=== PATIENT | female | born 1985 | race American Indian/Alaskan Native ===

== ENCOUNTER 2016-06-17 11:49 | Outpatient (CLI) | payer MEDICAID ==
[2016-06-17 12:24] VITALS: BP 119/67
[2016-06-17] MEDS ORDERED: LACTATED RINGERS 500 ML IV ONE (13:28)
== END 2016-06-17 14:53 | disposition home or self-care (01) ==
LOC: TRG 11:49
PROVIDERS: ATTEND Obstetrics & Gynecology
DX: O77.9 Labor and delivery complicated by fetal stress, unspecified (principal); O47.9 False labor, unspecified; Z3A.00 Weeks of gestation of pregnancy not specified
CPT/HCPCS: 59025; 96360; 96361; J7120

== ENCOUNTER 2016-07-06 12:47 | Outpatient (CLI) | payer MEDICAID ==
[2016-07-06] MEDS ORDERED: LACTATED RINGERS 1,000 ML ONE (15:01)
[2016-07-06] MEDS ORDERED: LACTATED RINGERS 1,000 ML IV SCH (17:00)
[2016-07-06 17:03] VITALS: BP 125/69
== END 2016-07-06 17:10 | disposition home or self-care (01) ==
LOC: TRG 12:47
PROVIDERS: ATTEND Obstetrics & Gynecology
DX: O62.0 Primary inadequate contractions (principal); O47.1 False labor at or after 37 completed weeks of gestation; Z3A.37 37 weeks gestation of pregnancy
CPT/HCPCS: 59025; J7120

== ENCOUNTER 2016-07-12 04:21 | Inpatient (IN) | payer MEDICAID ==
[~2016-07-12 04:21] MED LIST: LACTATED RINGERS 1,000 ML ONE
[2016-07-12] MEDS ORDERED: REGLAN IV ONE (04:35)
[2016-07-12] MEDS ORDERED: BICITRA PO ONE (04:35)
[2016-07-12] MEDS ORDERED: PEPCID IV ONE ×2 (04:35→04:37)
[2016-07-12] MEDS ORDERED: PITOCin/NS 20 UNIT/1000ML DRIP 20,000 MILLIUNITS/1,000 ML BAG IV ONE (04:37)
[2016-07-12] MEDS ORDERED: REGLAN ONE (04:37)
[2016-07-12] MEDS ORDERED: LACTATED RINGERS 1,000 ML IV NR (05:00)
[2016-07-12] MEDS ORDERED: PITOCin 20 UNIT in NACL 0.9% 1000 ML 1,000 ML IV SCH (05:00)
[2016-07-12] MEDS ORDERED: ANCEF/STERILE WATER 2 GM/20 ML 2 GM/20 ML SYRINGE IV NR (05:00)
--- NOTE | 2016-07-12 05:04 | History and Physical Report ---
History of Present Illness Date of examination: 07/12/16 Date of admission: 07/12/16 04:21 Chief complaint: Contractions with spontaneous rupture of membranes History of present illness: 31-year-old 032 at 38+4 weeks presents with above complaints and issues, she is a [facility] patient. Patient has had unremarkable care. She had contractions starting at ~ 2:30 AM this morning with spontaneous rupture of membranes and meconium. She is status post 2 prior C-sections and is scheduled for a 3rd repeat with tubal ligation in 3 days Past History Past Medical History: no pertinent history Past Surgical History: section (# 2 (last in 2010)) JUNIOR STAFF ACCOUNTANT History: denies: cancer, chlamydia, gonorrhea, hepatitis B, hepatitis C, herpes, HIV, syphilis, trichomonas Social history: single, smoking, full code. denies: alcohol abuse, prescription drug abuse, IV drug use - Obstetrical History Expected Date of Delivery: 07/22/16 Actual Gestation: 38 Week(s) 4 Day(s) : 6 Para: 2 Medications and Allergies Allergies Allergy/AdvReac Type Severity Reaction Status Date / Time No Known Allergies Allergy Unverified 06/17/16 12:27 Active Meds: Active Medications Cefazolin Sodium (Ancef/Sterile Water 2 Gm/20 Ml) 2 gm in 20 mls @ 80 mls/hr IV PREOP NR PRN Reason: Protocol Stop: 07/12/16 05:14 Lactated Ringer's (Lactated Ringers) 1,000 mls @ 2,250 mls/hr IV PREOP NR Stop: 07/13/16 05:27 Oxytocin 20 unit/ Sodium (Chloride) 1,002 mls @ 999 mls/hr IV TITR DEXTER Stop: 07/12/16 23:01 Review of Systems Constitutional: no fever, no chills Ears, nose, mouth and throat: no headache Cardiovascular: no chest pain, no orthopnea, no palpitations, no syncope, no lightheadedness, no shortness of breath, no dyspnea on exertion, no high blood pressure Respiratory: no cough, no shortness of breath, no dyspnea on exertion Gastrointestinal: abdominal pain (Painful intermittent contractions), no nausea , no vomiting Genitourinary: leakage of fluid, no vaginal bleeding, no vaginal discharge - Vital Signs Vital signs: Vital Signs Pulse BP Pulse Ox 76 143/90 98 07/12/16 04:31 07/12/16 04:31 07/12/16 04:31 Temp Pulse Resp BP Pulse Ox 98.1 F 74 18 143/90 97 07/12/16 04:37 07/12/16 04:56 07/12/16 04:37 07/12/16 04:31 07/12/16 04:56 - Physical Exam Cardiovascular: Regular rate, Normal S1 Lungs: Positive: Clear to auscultation, Normal air movement Abdomen: Positive: normal appearance, soft. Negative: distention, tenderness, guarding, rigidity Uterus: Positive: enlarged (EFW ~ 3600). Negative: tender Adnexa: both: normal Extremities: Positive: normal - Obstetrical FHR: category 1 Cervical Dilatation: 1 (Per RN exam) Results All other labs normal. Assessment and Plan A: 31 y/0 at 38+4 with 2 prior C-S now w/ SROM -Cat 1 tracing P: -Will proceed to the OR for a third repeat and tubal ligation -Has been consented - Patient Problems (1) 38 weeks gestation of Current Visit: Yes Status: Acute (2) Spontaneous rupture of amniotic membranes Current Visit: Yes Status: Acute (3) History of 2 sections Current Visit: Yes Status: Acute
[2016-07-12 05:06] LABS: Basophils % (Auto) 0.2 % (0.0-1.8); Eosinophils % (Auto) 0.7 % (0.0-4.3); Hemoglobin 12.3 gm/dl (10.1-14.3); Mean Corpuscular HGB Conc 34 % (30-34); Mean Corpuscular Hemoglobin 31 pg (28-32); Mean Corpuscular Volume 91 fl (79-97); Platelet Count 186 K/mm3 (140-440); Red Blood Count 3.94 M/mm3 (3.65-5.03); Red Cell Distribution Width 14.7 % (13.2-15.2); White Blood Count 12.5 K/mm3 (4.5-11.0)
[2016-07-12] MEDS ORDERED: NACL 0.9% 1000 ML ONE (05:20)
[2016-07-12] MEDS ORDERED: ANCEF/STERILE WATER 2 GM/20 ML IV ONE (05:20)
[2016-07-12] MEDS ORDERED: MORPHINE ONE (05:22)
[2016-07-12] MEDS ORDERED: NEO SYNEPHRINE ONE (05:50)
[2016-07-12] MEDS ORDERED: NACL 0.9% 100 ML ONE (05:50)
[2016-07-12] MEDS ORDERED: ZOFRAN ONE (05:50)
[2016-07-12] MEDS ORDERED: WATER FOR IRRIG STERILE IR ONE (06:00)
[2016-07-12] MEDS ORDERED: NACL 0.9% IR ONE (06:00)
[2016-07-12] MEDS ORDERED: LANSINOH TP PRN (07:17)
[2016-07-12] MEDS ORDERED: TYLENOL PO PRN (07:17)
[2016-07-12] MEDS ORDERED: MYLICON PO PRN (07:17)
[2016-07-12] MEDS ORDERED: SENOKOT PO PRN (07:17)
[2016-07-12] MEDS ORDERED: TUCKS PAD TP PRN (07:17)
[2016-07-12] MEDS ORDERED: MILK OF MAGNESIA PO PRN (07:17)
[2016-07-12] MEDS ORDERED: ZOFRAN IV PRN (07:17)
[2016-07-12] MEDS ORDERED: NARCAN 0.4 MG/1 ML IV PRN (07:17)
[2016-07-12] MEDS ORDERED: ANUCORT-HC PR PRN (07:17)
--- NOTE | 2016-07-12 07:17 | Operative Report ---
Operative Report Operative Report: DATE: 07/12/2016 PREOPERATIVE DIAGNOSIS:-year-old at 38+4 weeks, 2 prior C-sections, spontaneous rupture of membranes in active labor, desires permanent sterilization POSTOP DIAGNOSIS: As above NAME OF PROCEDURE: Repeat low transverse section with bilateral tubal ligation using Filshie clips Adhesiolysis SURGEON: GOLDY HAMM MD USER EXPERIENCE ANALYST: [] ANESTHESIA: Epidural EBL: 700 mL PATHOLOGY SPECIMEN: None URINE OUTPUT: 450 mL FINDINGS: Infant in cephalic presentation, time of delivery was 6:19 AM, Apgars 8 and 9, weight was 6 lbs. 7 oz. or 2934 g, normal uterus tubes and ovaries bilaterally, Moderate adhesions DESCRIPTION OF PROCEDURE: She was taken to the operating room where she was prepped and draped in a sterile fashion, she was placed in the dorsal supine position. Pfannenstiel incision was performed through her prior incisional scar which was carried through to underlying rectus fascia which was on the midline. The fascial incision was extended laterally with use of Arriaga scissors , the anterior leaf was then grasped with Kochers forceps elevated dissected sharply and bluntly off the underlying rectus in a similar fashion inferior leaf was grasped elevated dissected sharply and bluntly off the underlying rectus. The rectus was in the midline, moderate adhesions noted and adhesiolysis performed with good visualization of bladder. A bladder blade was placed in the patient's pelvic cavity; bladder flap was created. A hysterotomy incision was then performed in the lower segment with clear amniotic fluid noted , hysterotomy incision was extended laterally with the use of fingers manually. Infant in cephalic presentation was delivered in the usual manner; cord was clamped and cut was handed over to waiting nursery staff. The placenta was then delivered manually intact, the uterus was exteriorized cleared of all clots and debris. Hysterotomy incision was then closed in a running locked fashion with 0 Vicryl on a CTX; using the same suture was imbricate the initial layer. Interrupted [id number] stitches were used to obtain hemostasis. Attention was then turned tubes which were grasped serially with Babcocks and using Filshie clips each tube was clipped 2 with good blanching noted. Uterus was then returned to the patient's pelvic cavity; peritoneal edges were grasped with hemostats and Nazia's elevated copiously irrigation was used to clear the gutters of all clots and debris. Tercel hemostatic agent was then applied to the hysterotomy incision as a means to prevent future bleeding. The peritoneal layer was then closed in a running fashion with 3-0 Vicryl and the rectus was reapproximated with a single [id number] stitch. The fascia was closed in a running fashion with 0 Vicryl and tied in the opposite side. The subcutaneous layer was irrigated and then reapproximated with interrupted [id number] stitches. The skin was closed in a subcuticular manner with 4-0 Vicryl. She tolerated the procedure well lap and instrument counts were correct 2 she did receive 2 g of Ancef prior to incision she is transferred to PACU in stable condition thank you.
[2016-07-12] MEDS ORDERED: MORPHINE IV PRN ×2 (07:20)
--- NOTE | 2016-07-12 07:20 | Anesthesia Day of Surgery ---
Anesthesia Day of Surgery - Day of Surgery Patient Examined: Yes Patient H&P Reviewed: Yes Patient is NPO: Yes
--- NOTE | 2016-07-12 07:20 | Post Anesthesia Evaluation ---
- Post Anesthesia Evaluation Patient Participated: Yes Airway Patent: Yes Stable Respiratory Function: Yes Nausea/Vomiting: No Temp > 96.8F: Yes Pain Manageable: Yes Adequeate Hydration: Yes Anesthesia Complications: No Block Receding Appropriately: Yes Patient on Ventilator: No
--- NOTE | 2016-07-12 07:20 | Anesthesia Consultation ---
Anesthesia Consult and Med Hx Date of service: 07/12/16 - Airway Anesthetic Teeth Evaluation: Good ROM Head & Neck: Adequate Mental/Hyoid Distance: Adequate Mallampati Class: Class II Intubation Access Assessment: Probably Good - Pulmonary Exam CTA: Yes - Cardiac Exam Cardiac Exam: RRR - Pre-Operative Health Status ASA Pre-Surgery Classification: ASA2 Proposed Anesthetic Plan: Epidural, Spinal - Pulmonary Hx Asthma: No COPD: No Hx Pneumonia: No - Cardiovascular System Hx Hypertension: No - Central Nervous System Hx Seizures: No Hx Psychiatric Problems: No - Endocrine Hx Renal Disease: No Hx End Stage Renal Disease: No Hx Hypothyroidism: No Hx Hyperthyroidism: No - Hematic Hx Anemia: No Hx Sickle Cell Disease: No - Other Systems Hx Alcohol Use: No Hx Obesity: Yes - Additional Comments Anesthesia Medical History Comments: repeat and BTL, SROM
[2016-07-12] MEDS ORDERED: TORADOL IV PRN (07:21)
[2016-07-12] MEDS ORDERED: D5LR 1,000 ML IV SCH (08:00)
[2016-07-12] MEDS ORDERED: SODIUM CHLORIDE FLUSH SYRINGE 10 ML IV NR (08:00)
[2016-07-12] MEDS ORDERED: PITOCin/NS 20 UNIT/1000ML DRIP 20,000 MILLIUNITS/1,000 ML BAG IV SCH (08:00)
[2016-07-12] MEDS: MOTRIN PO PRN (18:33)
[2016-07-12 21:26] LABS: Hematocrit 31.5 % (30.3-42.9); Hemoglobin 10.6 gm/dl (10.1-14.3)
[2016-07-13] MEDS: PERCOCET 5/325 PO PRN ×4 (06:08→23:44)
[2016-07-13] MEDS: MOTRIN PO PRN ×2 (09:11→17:32)
[2016-07-13] MEDS ORDERED: BENADRYL PO PRN (10:00)
[2016-07-13] MEDS: FEOSOL PO SCH (10:05)
[2016-07-13] MEDS: PRENATAL VITAMIN PO SCH (10:05)
--- NOTE | 2016-07-13 10:45 | Progress Note ---
Assessment and Plan A: POD #1 Stable P: Follow Routine PostOp Orders Encourage increased ambulation Subjective - Subjective Date of service: 07/13/16 Patient reports: appetite normal, voiding normally, pain well controlled, flatus , ambulating normally [place]: doing well, bottle feeding Objective - Vital Signs Latest vital signs: Vital Signs Temp Pulse Pulse Resp BP 07/13/16 08:52 98.5 F 81 18 136/53 07/13/16 06:08 18 07/13/16 04:00 97.9 F 82 18 115/61 07/13/16 00:00 98.3 F 70 18 120/58 07/12/16 20:00 98.8 F 70 18 120/68 07/12/16 18:33 18 07/12/16 16:25 98.7 F 88 20 114/80 07/12/16 12:30 98 F 78 18 120/76 Intake and Output 07/12/16 07/13/16 07/13/16 22:59 06:59 14:59 Intake Total 600 440 120 Output Total 900 1300 Balance -300 -860 120 Intake: Oral 600 440 120 Output: Urine 900 1300 Indwelling Catheter 900 Void 1300 Other: Total, Intake Amount 120 200 120 Total, Output Amount 400 400 Voiding Method Toilet - Exam Breasts: Present: normal Cardiovascular: Present: Regular rate Lungs: Present: Clear to auscultation, Normal air movement Abdomen: Present: normal appearance, soft, normal bowel sounds Uterus: Present: normal, firm, fundal height below umbilicus Extremities: Present: normal Incision: Present: normal, dry, dressed
--- NOTE | 2016-07-13 13:03 | Progress Note ---
Subjective Date of service: 07/13/16 Interval history: 1st POD after Patient is relatively comfortable. Pain is well controlled with pain meds. Ambulated well. No residual neurological deficit. No anesthesia complications Objective - Constitutional Vitals: Vital Signs - 12hr 07/13/16 07/13/16 07/13/16 04:00 06:08 08:52 Temperature 97.9 F 98.5 F Pulse Rate [ 82 81 Left Brachial] Respiratory 18 18 18 Rate Blood Pressure 115/61 136/53 [Left Arm] - Labs CBC & Chem 7: 07/12/16 20:54
[2016-07-14] MEDS: MOTRIN PO PRN (05:06)
[2016-07-14] MEDS ORDERED: BOOSTRIX IM ONE (06:00)
[2016-07-14] MEDS: PERCOCET 5/325 PO PRN ×2 (06:05→11:33)
--- NOTE | 2016-07-14 10:16 | Progress Note ---
Assessment and Plan A: POD #2 Stable P: Follow routine PostOp Orders D/C Home today per patient request RTO in 1 week Subjective - Subjective Date of service: 07/14/16 Patient reports: appetite normal, voiding normally, pain well controlled, flatus , bowel movement, ambulating normally [place]: doing well, bottle feeding Objective - Vital Signs Latest vital signs: Vital Signs Temp Pulse Pulse Resp BP 07/14/16 07:55 97.9 F 70 18 126/70 07/14/16 06:05 18 07/14/16 05:06 20 07/13/16 23:44 20 07/13/16 23:40 98.5 F 65 18 121/69 07/13/16 16:04 98.2 F 78 18 133/76 Intake and Output 07/13/16 07/14/16 07/14/16 22:59 06:59 14:59 Intake Total 600 480 240 Output Total 600 Balance 0 480 240 Intake: Oral 360 240 Intake, Free Water 240 480 Output: Urine 600 Void 600 Other: Total, Intake Amount 120 120 Total, Output Amount 600 Voiding Method Toilet # Voids Void 2 1 1 - Exam Breasts: Present: normal Cardiovascular: Present: Regular rate Lungs: Present: Clear to auscultation, Normal air movement Abdomen: Present: normal appearance, soft, normal bowel sounds Uterus: Present: normal, firm, fundal height below umbilicus Extremities: Present: normal Incision: Present: normal, dry, intact
--- NOTE | 2016-07-14 10:17 | Discharge Summary ---
Providers - Providers Date of Admission: 07/12/16 04:21 Date of discharge: 07/14/16 Attending physician: YESI LUO MD Primary care physician: YESI LUO MD Hospitalization Reason for admission: rupture of membranes Delivery: Procedure: bilateral tubal ligation, repeat low transverse Episiotomy: none Laceration: none Incision: normal, dry, intact Other procedures: none complications: none Discharge diagnosis: IUP at term delivered Harris baby: female Condition at discharge: Good Disposition: DISCHARGED TO HOME OR SELFCARE Plan - Discharge Medications Prescriptions: Ibuprofen [Motrin 600 MG tab] 600 mg PO Q8H PRN #30 tablet PRN Reason: Pain Multivitamin with Iron [Multivitamins with Iron] 1 each PO DAILY #30 tablet oxyCODONE /ACETAMINOPHEN [Percocet 5/325] 1 tab PO Q6HR PRN #30 tablet PRN Reason: Pain - Provider Discharge Summary Activity: routine, no sex for 6 weeks, no heavy lifting 4 weeks, no strenuous exercise Diet: routine Instructions: routine Additional instructions: [] Smoking cessation referral if applicable(refer to patient education folder for contact #) [] Refer to [facility]'s [facility] Booklet Call your doctor immediately for: * Fever > 100.5 * Heavy vaginal bleeding ( >1 pad per hour) * Severe persistent headache * Shortness of breath * Reddened, hot, painful area to leg or breast * Drainage or odor from incision. * Keep incision clean and dry at all times and follow doctor's instructions regarding bathing/showering - Follow up plan Follow up: BASSEM ESTRADA CNM [Advanced Practice Nurse] - 7 Days
[2016-07-14] MEDS: FEOSOL PO SCH (11:28)
[2016-07-14] MEDS: PRENATAL VITAMIN PO SCH (11:28)
[2016-07-14 12:21] VITALS: BP 122/70
== END 2016-07-14 12:00 | disposition home or self-care (01) | DRG 766 ==
LOC: APU 04:21 → OB 08:52
PROVIDERS: ADMIT Obstetrics & Gynecology; ATTEND Obstetrics & Gynecology
PROC: 10D00Z1 Extraction of Products of Conception, Low, Open Approach (ICD-10-PCS; principal; 2016-07-12)
PROC: 0UL70CZ Occlusion of Bilateral Fallopian Tubes with Extraluminal Device, Open Approach (ICD-10-PCS; 2016-07-12)
DX: O42.02 Full-term premature rupture of membranes, onset of labor within 24 hours of rupture (principal); O34.211 Maternal care for low transverse scar from previous cesarean delivery; O77.0 Labor and delivery complicated by meconium in amniotic fluid; O99.334 Smoking (tobacco) complicating childbirth; F17.200 Nicotine dependence, unspecified, uncomplicated; Z3A.38 38 weeks gestation of pregnancy; Z37.0 Single live birth; Z30.2 Encounter for sterilization
CPT/HCPCS: 36415; 85014; 85018; 85025; 86850; 86900; 86901; 90471; 90715; 99211; C9250; G0463; J0690; J1885; J2270; J2370; J2405; J2590; J2765; J7030; J7120; J7121